=== PATIENT | male | born 1995 | race Caucasian/White ===

== ENCOUNTER 2022-05-19 22:06 | Emergency (ER) | payer OTHER ==
[2022-05-19 22:12] VITALS: BP 148/72; PULSE 91; RESP 20; TEMP 98.3; BMI 30.8
[2022-05-19] MEDS ORDERED: ACETAMINOPHEN 500 MG TABLET (FP) PO ONE (23:06)
[2022-05-19] MEDS ORDERED: ACETAMINOPHEN 325 MG TABLET (FP) ONE (23:12)
== END 2022-05-20 00:09 | disposition home or self-care (01) ==
LOC: JER 22:06
DX: M25.532 Pain in left wrist (principal)
CPT/HCPCS: 73110-TC-LT-FY; 73130-TC-LT-FY; 99283-25

== ENCOUNTER 2022-09-30 18:13 | Emergency (ER) | payer OTHER ==
[2022-09-30 18:17] VITALS: BP 156/82; PULSE 87; RESP 18; TEMP 98; BMI 31.6
== END 2022-09-30 22:36 | disposition home or self-care (01) ==
LOC: JERFT 18:13
DX: S49.92XA Unspecified injury of left shoulder and upper arm, initial encounter (principal); W45.8XXA Other foreign body or object entering through skin, initial encounter
CPT/HCPCS: 73060-TC-LT-FY; 99283-25

== ENCOUNTER 2024-05-22 11:20 | Emergency (ER) | payer OTHER ==
[2024-05-22 11:38] VITALS: TEMP 98.5; BMI 34.3
[2024-05-22] MEDS ORDERED: MECLIZINE HCL 25 MG TABLET (FP) ONE (13:58)
[2024-05-22] MEDS: MECLIZINE HCL 25 MG TABLET (FP) PO ONE (14:01)
[2024-05-22 14:23] LABS: BASO % 1.3 % (0-2.0); EOS % 0.5 % (0-4.5); HEMATOCRIT 49.5 % (35.4-49); HEMOGLOBIN 16.2 GM/dL (11.7-16.9); LYMPH % 25.8 % (8-40); MCH 27.1 pg (25.7-33.7); MCHC 32.6 g/dl (32.0-35.9); MEAN CELL VOLUME 83.2 fl (80-96); MONO % 7.4 % (3.8-10.2); PLATELET COUNT 371 10^3/uL (134-434); RBC 5.95 M/mm3 (4.00-5.60); RDW 15.7 % (11.9-15.9); WHITE BLOOD COUNT 8.9 K/mm3 (4.0-10.0)
[2024-05-22 14:41] LABS: INR 1.07 (0.83-1.09); PROTHROMBIN TIME (PATIENT) 12.1 SEC (9.7-13.0)
[2024-05-22 15:09] LABS: POTASSIUM 4.8 mmol/L (3.5-5.1)
[2024-05-22 15:11] LABS: CALCIUM 9.5 mg/dL (8.5-10.1)
[2024-05-22 15:12] LABS: ALBUMIN 3.9 g/dl (3.4-5.0); BLOOD UREA NITROGEN 9.6 mg/dL (7-18)
[2024-05-22 15:15] LABS: CREATININE 1.1 mg/dL (0.55-1.3)
[2024-05-22 15:16] LABS: TOT PROT 7.3 g/dl (6.4-8.2)
[2024-05-22 16:28] VITALS: BP 134/89; PULSE 80; RESP 20
[2024-05-22] MEDS ORDERED: ACETAMINOPHEN INJECTION 100 ML ONE (16:38)
[2024-05-22] MEDS: ACETAMINOPHEN 1000 MG/100 ML BAG IVPB ONE (16:40)
== END 2024-05-22 18:09 | disposition home or self-care (01) ==
LOC: JER 11:20
PROC: 3E033NZ Introduction of Analgesics, Hypnotics, Sedatives into Peripheral Vein, Percutaneous Approach (ICD-10-PCS; principal; 2024-05-22)
DX: R42 Dizziness and giddiness (principal); R11.0 Nausea; Z20.822 Contact with and (suspected) exposure to COVID-19
CPT/HCPCS: 0241U-QW; 36415; 70450-TC; 71045-TC-FY; 80053; 84484; 85025; 85610; 85730; 93005; 93010; 99285-25; J0131

== ENCOUNTER 2024-06-03 11:55 | Emergency (ER) | payer OTHER ==
[2024-06-03 12:35] VITALS: BP 139/95; PULSE 76; RESP 17; TEMP 98.4; BMI 34.3
[2024-06-03] MEDS ORDERED: MECLIZINE HCL 12.5 MG TABLET ONE (13:06)
[2024-06-03] MEDS ORDERED: ACETAMINOPHEN 325 MG TABLET (FP) ONE (13:06)
[2024-06-03] MEDS: MECLIZINE HCL 12.5 MG TABLET PO ONE (13:11)
[2024-06-03] MEDS: ACETAMINOPHEN 500 MG TABLET (FP) PO ONE (13:11)
[2024-06-03 13:54] LABS: BASO % 1.8 % (0-2.0); EOS % 1.1 % (0-4.5); HEMATOCRIT 51.7 % (35.4-49); HEMOGLOBIN 16.6 GM/dL (11.7-16.9); LYMPH % 26.9 % (8-40); MCH 26.1 pg (25.7-33.7); MEAN CELL VOLUME 81.7 fl (80-96); MEAN PLT VOLUME 8.3 fl (7.5-11.1); MONO % 8.6 % (3.8-10.2); NEUT % 61.6 % (42.8-82.8); PLATELET COUNT 392 10^3/uL (134-434); RBC 6.33 M/mm3 (4.00-5.60); RDW 16.1 % (11.9-15.9); WHITE BLOOD COUNT 10.3 K/mm3 (4.0-10.0)
[2024-06-03 14:11] LABS: POTASSIUM 5.4 mmol/L (3.5-5.1)
[2024-06-03 14:13] LABS: ALBUMIN 3.9 g/dl (3.4-5.0); BLOOD UREA NITROGEN 9.5 mg/dL (7-18); CALCIUM 9.4 mg/dL (8.5-10.1)
[2024-06-03 14:16] LABS: CREATININE 1.2 mg/dL (0.55-1.3)
[2024-06-03 14:18] LABS: BILIRUBIN,TOTAL 1.8 mg/dL (0.2-1); TOT PROT 7.5 g/dl (6.4-8.2)
[2024-06-03 15:07] LABS: HIV INTERPRETATION NEGATIVE (NEGATIVE)
== END 2024-06-03 14:30 | disposition home or self-care (01) ==
LOC: JER 11:55
DX: G62.9 Polyneuropathy, unspecified (principal); R07.89 Other chest pain; R42 Dizziness and giddiness; R51.9 Headache, unspecified; H53.8 Other visual disturbances
CPT/HCPCS: 36415; 71045-TC-FY; 80053; 84484; 85025; 86803; 87389; 93005; 93010; 99285-25